=== PATIENT | female | born 1995 | race Two or more races ===

== ENCOUNTER 2018-01-14 15:20 | Emergency (ER) | payer OTHER ==
[~2018-01-14] VITALS: Ht 152.4 cm; Wt 50.3 kg
[~2018-01-14 15:20] MED LIST: PROPANADOL; PROTONIX40 MG; ZANTAC300 MG PO; ZOFRAN4 MG PO
== END 2018-01-14 21:21 | disposition home or self-care (01) ==
LOC: ER 15:20
DX: O20.0 Threatened abortion (principal); Z34.81 Encounter for supervision of other normal pregnancy, first trimester

== ENCOUNTER 2020-06-13 19:51 | Emergency (ER) | payer OTHER ==
[~2020-06-13] VITALS: Ht 152.4 cm; Wt 55.3 kg
[2020-06-13] MEDS ORDERED: AZITHROMYCIN250 MG PO (22:50)
[2020-06-13] MEDS ORDERED: INTESTINEX680 M2 PO (22:50)
[2020-06-13] MEDS ORDERED: VISTARIL50 MG PO (22:50)
== END 2020-06-13 22:57 | disposition home or self-care (01) ==
LOC: ER 19:51
DX: R07.89 Other chest pain (principal); R06.02 Shortness of breath; R00.2 Palpitations; F41.0 Panic disorder [episodic paroxysmal anxiety]; Z03.818 Encounter for observation for suspected exposure to other biological agents ruled out

== ENCOUNTER → 2020-08-19 | Emergency (ER) | payer OTHER ==
[~2020-08-19] VITALS: Ht 152.4 cm; Wt 55.3 kg
[~2020-08-19] MED LIST changes: +AZITHROMYCIN250 MG PO; +INTESTINEX680 M2 PO; +VISTARIL50 MG PO
== END | disposition left against medical advice (07) ==
LOC: ER 18:41
DX: Z53.20 Procedure and treatment not carried out because of patient's decision for unspecified reasons (principal)